=== PATIENT | male | born 1965 | race Caucasian/White ===

== ENCOUNTER → 2016-12-07 | Outpatient (CLI) | payer OTHER | LOC: EXRD 15:06 | DX: S99.922A Unspecified injury of left foot, initial encounter (principal); M54.2 Cervicalgia; M47.812 Spondylosis without myelopathy or radiculopathy, cervical region | CPT/HCPCS: 72050; 73630 ==

== ENCOUNTER → 2016-12-27 | Outpatient (CLI) | payer OTHER | LOC: US 13:00 | DX: N62 Hypertrophy of breast (principal); N64.89 Other specified disorders of breast | CPT/HCPCS: 76641-LT ==

== ENCOUNTER → 2021-06-30 | Outpatient (CLI) | payer OTHER | LOC: EXRD 13:56 | DX: M54.50 Low back pain, unspecified (principal); M51.37 Other intervertebral disc degeneration, lumbosacral region | CPT/HCPCS: 72110 ==

== ENCOUNTER → 2021-08-16 | Outpatient (CLI) | payer OTHER | LOC: EXRD 10:29 | DX: M54.2 Cervicalgia (principal); G89.29 Other chronic pain; M47.812 Spondylosis without myelopathy or radiculopathy, cervical region | CPT/HCPCS: 72050 ==